=== PATIENT | male | born 1965 | race Hispanic/Latino ===

== ENCOUNTER 2023-07-12 12:18 | Emergency (ER) | payer BC ==
[~2023-07-12] VITALS: Ht 185.4 cm; Wt 163.3 kg
[2023-07-12 12:36] VITALS: BP 138/60; PULSE 68; RESP 16
[2023-07-12] MEDS: KETOROLAC 60 MG VIAL (30MG/ML) IM ONE (13:35)
[2023-07-12] MEDS ORDERED: IBUP-2070 PO (16:00)
[2023-07-12] MEDS ORDERED: CYCL10TA16 PO (16:00)
== END 2023-07-12 16:13 | disposition home or self-care (01) ==
LOC: EDH 12:18
DX: S39.012A Strain of muscle, fascia and tendon of lower back, initial encounter (principal); I10 Essential (primary) hypertension; Z79.899 Other long term (current) drug therapy; X58.XXXA Exposure to other specified factors, initial encounter; Y93.89 Activity, other specified; Y92.89 Other specified places as the place of occurrence of the external cause; Y99.8 Other external cause status
CPT/HCPCS: 99284; 72100; 96372; 93005; J1885